=== PATIENT | female | born 1995 | race African-American/Black ===

== ENCOUNTER 2017-06-13 17:28 | Emergency (ER) | payer MEDICAID, OTHER ==
[~2017-06-13] VITALS: Ht 167.6 cm; Wt 104.3 kg
[2017-06-13 17:37] VITALS: BP 127/58
[2017-06-13 20:02] LABS: Urine RBC None Seen /hpf (0 - 4)
[2017-06-13 20:22] LABS: Urine Bilirubin Negative (Negative); Urine Blood Negative /uL (Negative); Urine Ca Oxalate Crystal FEW (None Seen); Urine Color Yellow (Yellow); Urine Glucose Normal (Normal); Urine Ketone Negative (Negative); Urine Mucus FEW (None Seen); Urine Nitrite Negative (Negative); Urine Squamous Epithelial Cell FEW /hpf (<5); Urine pH 5.5 (5.0-8.0)
== END 2017-06-13 19:42 | disposition left against medical advice (07) ==
LOC: ER 17:33
DX: R10.9 Unspecified abdominal pain (principal); Z53.21 Procedure and treatment not carried out due to patient leaving prior to being seen by health care provider
CPT/HCPCS: 81001